=== PATIENT | male | born 1995 | race Caucasian/White ===

== ENCOUNTER → 2016-10-06 | Outpatient (CLI) | payer OTHER ==
[~2016-10-06] MED LIST: TYLENOL W/ CODEI5 ML PO; TYLENOL W/CODE480 ML PO; TYLENOL W/CODEI1 TA4 PO
[2016-10-06 16:22] LABS: HEMATOCRIT 44.1 % (42.0-52.0); HEMOGLOBIN 14.8 g/dl (14.0-18.0); MEAN CELL VOLUME 91.1 fl (80.0-94.0); MEAN CORPUSCULAR HGB 30.6 pg (27.0-31.0); MEAN CORPUSCULAR HGB CONC 33.6 g/dl (33.0-37.0); MEAN PLATELET VOLUME 9.8 fl (9.6-12.3); RED BLOOD COUNT 4.84 10*6/uL (4.50-5.90); RED CELL DISTRI WIDTH 12.5 % (0-14.5); WHITE BLOOD COUNT 5.8 10*3/uL (4.8-10.8)
[2016-10-06 16:33] LABS: ALBUMIN 4.1 gm/dl (3.1-4.5); ALKALINE PHOSPHATASE 76 U/L (45-117); BILIRUBIN, TOTAL 0.4 mg/dl (0.2-1.0); BUN 12 mg/dl (7-24); CARBON DIOXIDE 28 mmol/L (21-32); CHLORIDE 108 mmol/L (98-107); CHOLESTEROL 142 mg/dL (<200); EST GLOM FILT AFRICAN AMERICAN > 60 ml/min; GLUCOSE 92 mg/dL (65-99); HDL CHOLESTEROL 58 mg/dl (40-60); LDL CHOLESTEROL 73 mg/dL (9-159); POTASSIUM 4.4 mmol/L (3.5-5.1); SGOT/AST 23 IU/L (3-35); SGPT/ALT 40 U/L (12-78); SODIUM 140 mmol/L (136-145); TRIGLYCERIDES 54 mg/dl (<150); VLDL CHOLESTEROL 11 mg/dL (6-40)
== END | disposition home or self-care (01) ==
LOC: LAB 15:32
PROVIDERS: Family Medicine
DX: Z13.220 Encounter for screening for lipoid disorders (principal); E04.9 Nontoxic goiter, unspecified; R53.83 Other fatigue

== ENCOUNTER → 2018-06-26 | Outpatient (CLI) | payer OTHER ==
[2018-06-26 11:22] LABS: BASO % 0.6 % (0.0-1.0); EOS # 0.5 10*3/uL (0.0-0.4); EOS % 7.4 % (1.0-4.0); HEMATOCRIT 47.7 % (42.0-52.0); HEMOGLOBIN 16.1 g/dl (14.0-18.0); LYMPH # 1.9 10*3/uL (1.3-4.4); LYMPH % 29.9 % (27.0-41.0); MEAN CELL VOLUME 91.6 fl (80.0-94.0); MEAN CORPUSCULAR HGB 30.9 pg (27.0-31.0); MEAN CORPUSCULAR HGB CONC 33.8 g/dl (33.0-37.0); MEAN PLATELET VOLUME 9.9 fl (9.6-12.3); MONO # 0.4 10*3/uL (0.1-1.0); MONO % 6.7 % (3.0-9.0); NEUT # 3.5 10*3/uL (2.3-7.9); NEUT % 55.1 % (47.0-73.0); PLATELET COUNT AUTOMATED 208 10*3/uL (130-400); RED BLOOD COUNT 5.21 10*6/uL (4.50-5.90); RED CELL DISTRI WIDTH 12.5 % (0-14.5); WHITE BLOOD COUNT 6.4 10*3/uL (4.8-10.8)
[2018-06-26 11:46] LABS: ALBUMIN 4.3 gm/dl (3.1-4.5); ALKALINE PHOSPHATASE 70 U/L (45-117); BUN 13 mg/dl (7-24); CHLORIDE 105 mmol/L (98-107); CREATININE 1.08 mg/dL (0.70-1.30); POTASSIUM 4.4 mmol/L (3.5-5.1); SGOT/AST 14 IU/L (3-35); SGPT/ALT 22 U/L (12-78); SODIUM 140 mmol/L (136-145); TOTAL PROTEIN 7.3 gm/dL (6.4-8.2)
== END | disposition home or self-care (01) ==
LOC: US 09:58
PROVIDERS: Nurse Practitioner Family
DX: K62.5 Hemorrhage of anus and rectum (principal)

== ENCOUNTER → 2019-11-23 | Outpatient (CLI) | payer OTHER | LOC: COVID19 08:18 | PROVIDERS: ATTEND Family Medicine | DX: Z20.828 Contact with and (suspected) exposure to other viral communicable diseases (principal) ==

== ENCOUNTER → 2021-02-27 | Outpatient (CLI) | payer OTHER ==
[2021-02-27 09:30] LABS: ALBUMIN 4.1 gm/dl (3.1-4.5); BUN 12 mg/dl (7-24); CHLORIDE 111 mmol/L (98-107); CHOLESTEROL 177 mg/dL (<200); CREATININE 1.03 mg/dL (0.70-1.30); POTASSIUM 4.3 mmol/L (3.5-5.1); SGOT/AST 9 IU/L (3-35); SGPT/ALT 20 U/L (12-78); SODIUM 143 mmol/L (136-145); TRIGLYCERIDES 47 mg/dl (<150)
[2021-02-27 09:31] LABS: ALKALINE PHOSPHATASE 65 U/L (45-117); CPK 130 U/L (39-308); LDL CHOLESTEROL 104 mg/dL (9-159); TOTAL PROTEIN 6.8 gm/dL (6.4-8.2)
== END | disposition home or self-care (01) ==
LOC: LAB 08:46
PROVIDERS: ATTEND Family Medicine
DX: Z00.00 Encounter for general adult medical examination without abnormal findings (principal); F41.1 Generalized anxiety disorder; E74.00 Glycogen storage disease, unspecified

== ENCOUNTER → 2021-06-13 | Outpatient (CLI) | payer OTHER | END | disposition home or self-care (01) | LOC: US 15:58 | PROVIDERS: ATTEND Family Medicine | DX: N50.812 Left testicular pain (principal) ==

== ENCOUNTER → 2021-06-19 | Outpatient (CLI) | payer OTHER ==
[2021-06-20 08:08] LABS: RHEUMATOID FACTOR <10.0 IU/mL (<14.0)
[2021-06-28 19:06] LABS: HLA-B27 ANTIGEN Negative (.)
== END | disposition home or self-care (01) ==
LOC: LAB 12:42
PROVIDERS: ATTEND Family Medicine
DX: M47.817 Spondylosis without myelopathy or radiculopathy, lumbosacral region (principal); M79.10 Myalgia, unspecified site; M25.50 Pain in unspecified joint